=== PATIENT | female | born 1980 | race Hispanic/Latino ===

== ENCOUNTER 2017-12-15 11:04 | Observation (INO) | payer OTHER ==
[2017-12-14 11:18] VITALS: BMI 17.6
[2017-12-15 12:24] LABS: BASO % 0.2 % (0.0-2.0); EOS # 0.1 K/uL (0.0-0.7); EOS % 1.7 % (0.0-4.0); HEMOGLOBIN 13.7 g/dL (12.0-16.0); LYMPH # 2.3 K/uL (1.0-4.3); LYMPH % 39.2 % (20.0-40.0); MEAN CORPUSCULAR HEMOGLOBIN 30.9 pg (27.0-31.0); MEAN CORPUSCULAR HGB CONC 33.9 g/dL (33.0-37.0); MEAN PLATELET VOLUME 8.2 fl (7.2-11.7); MONO # 0.5 K/uL (0.0-0.8); MONO % 8.9 % (0.0-10.0); NEUT # 2.9 K/uL (1.8-7.0); NRBC % 0.2 % (0.0-0.0); RBC 4.44 Mil/uL (3.80-5.20); RED CELL DISTRIBUTION WIDTH 14.8 % (11.5-14.5); WHITE BLOOD COUNT 5.9 K/uL (4.8-10.8)
[2017-12-15] MEDS ORDERED: Bupivacaine HCl 0.5% PF (30 ml) Inj ONE (13:22)
[2017-12-15] MEDS ORDERED: Succinylcholine 200 mg/10 ml Inj IV ONE (16:22)
[2017-12-15] MEDS ORDERED: Midazolam 2 MG/2 ML VIAL ONE (16:22)
[2017-12-15] MEDS ORDERED: Rocuronium 10 mg/ml (5 ml) ONE (16:22)
[2017-12-15] MEDS ORDERED: Lidocaine 4% (Laryng-O-Jet) Kit MM ONE (16:22)
[2017-12-15] MEDS ORDERED: Neostigmine 1:1000 (1 mg/ml) Inj ONE (16:22)
[2017-12-15] MEDS ORDERED: Propofol 10 mg/ml Inj (20 ML) ONE (16:25)
[2017-12-15] MEDS ORDERED: Lactated Ringer's 1,000 ML IV ONE ×2 (16:54→18:47)
[2017-12-15] MEDS ORDERED: Normosol-R 1000 ML 1,000 ML IV ONE (17:28)
[2017-12-15] MEDS ORDERED: Dexamethasone 4 mg/1 ml ONE (17:38)
[2017-12-15] MEDS ORDERED: Silver Nitrate Topical - Stick ONE (18:15)
[2017-12-15] MEDS ORDERED: HYDROmorphone 1 mg/ml ISec ONE (18:54)
[2017-12-15] MEDS ORDERED: HYDROmorphone 0.5 mg/0.5 ml ISec IVP PRN (18:54)
[2017-12-15] MEDS ORDERED: Lactated Ringer's 1,000 ML IV SCH (19:00)
[2017-12-15] MEDS ORDERED: Oxycodone/Acetaminophen 5/325 mg Tab PO PRN (19:29)
[2017-12-16 03:39] VITALS: O2SAT 100
[2017-12-16 10:20] VITALS: BP 101/52; PULSE 70; RESP 18; TEMP 98.3
--- NOTE | 2017-12-22 10:28 | OP ---
PROCEDURE DATE: 12/15/2017 SURGEON: Errol Christian MD PROFESSOR OF BIOCHEMISTRY: Shiva Damon MD ANESTHESIOLOGIST: Elie Garcia MD ANESTHETIC: General Endo PREOPERATIVE DIAGNOSES: 1. pelvic pain. 2. Rule out endometriosis POSTOPERATIVE DIAGNOSES: 1. pelvic pain. 2. Rule out endometriosis OPERATION PERFORMED: 1. Examination under anesthesia. 2. Video_assisted hysteroscopy. 3. Hysteroscopic septoplasty. 4. Robotic da Debi laparoscopy. 5. excision of endometriosis . 6. cystoscopy COMPLICATIONS: None. SAMPLES: Sent to pathology ESTIMATED BLOOD LOSS: Minimal. FINDINGS: Genitalia: normal, external genitalia, cervix normal without lesions or polyps. Hysteroscopy showed evidence of normal cavity Cystoscopy was performed to rule out endometriosis of bladder mucosa and also interstitial cystitis, also injury. The bladder was normal with no evidence of stone, trigonitis or cystitis. Positive jet flow visualized in both ureters. Laparoscopy was normal, gallbladder was normal, liver edges appeared to be normal. Ascending colon and transverse were normal. . 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 She understood and accepted the risks involved. Appropriate literature was provided to the patient. The patient was in understanding that given her history and presurgical exam, she knows that she was a high risk and average patient. She accepted all the risks involved and all the questions had been answered to her satisfaction. DESCRIPTION OF PROCEDURE: Initiation of the case: After adequate anesthesia was obtained, the patient was placed in the dorsal lithotomy position with extreme care of placement of the patient without hyperextension or hyperflexing the hips. At this point, the patient was prepped and draped, the surgeon was gowned and gloved. A time- out was taken according to the hospital procedure and the procedure was started. At this point, we performed the cystoscopy and bilateral ureteral catheterization. At this point we performed cystoscopy: A cystoscope was inserted into the bladder, under direct visualization and the bladder was visualized. The bladder was free of lesions, tumors. There was no evidence of interstitial cystitis, and there was only a mild amount of trigonitis. At this point, both ureters were identified and appeared to be in normal anatomical position. At this point, utilizing an open-ended 5-Polish catheter, the left ureter was catheterized all the way to the distal ureter, and a 5 mL of IC-Green were injected into the distal ureter. Similarly, on the contralateral ureter, the ureter was catheterized all the way to the distal ureter, and a 5 mL of IC-Green were injected into the distal ureter. At this point, the stents were removed, and the hysteroscope was removed and a 16- Polish Parekh was placed into the bladder. At this point, we proceeded with a hysteroscopy: A speculum was placed in the vagina, and the anterior lip of the cervix was grasped. The cervix was dilated and a hysteroscope was inserted into the cavity. The cavity appeared to be of normal size with no lesions At this point, we proceeded with placement of trocars and docking of the Da Debi Xi robot The surgeons were re-gowned and re-gloved, and an open laparoscopy was performed by making an incision below the umbilicus, and the fascia was incised , and the peritoneum was entered in the blunt fashion. The cannula was inserted and the abdomen was insufflated, and under direct visualization 3 additional ports were inserted, left upper quadrant, left mid quadrant and right upper quadrant. At this point, the da Debi Xi robot was brought into the field and docked, and the instruments were inserted under direct visualization. With extreme care not to injure the bowel or any other area. As per the dictation, the upper abdomen appeared to be normal with no evidence of any lesions. The pelvis had the findings described above, which included significant adhesions, fibrosis of the posterior cul-de-sac, significant endometriosis with deep endometriosis nodules. Both ovary adherent to both the ovarian fossas and the posterior aspect of the uterus with significant inflammatory changes. At this point, we proceeded with a treatment of endometriosis and excision of endometriosis. On the left hand side, a large area of peritoneum, where containing endometriosis was excised in the ovarian fossa with the upper margin of the excision at the utero_ovarian ligament all the way down to the uterosacral ligament. Large areas of fibrosis were identified in posterior cul-de-sac and the rectovaginal space was affected with endometriosis . The rectovaginal area was then dissected and the space was opened, and we were able to dissect the rectum away from the posterior aspect of the cervix. Additional areas of endometriosis were dissected from the posterior aspect of the Uterus. At this point, we proceeded with excision of the endometriosis on the right hand side where similarly in a full excision of endometriosis was performed by performing incision from starting at the right utero_ovarian ligament all the way down to the right uterosacral ligament. There were inflammatory areas in the posterior aspect of the uterus, which were not endometriotic, but they were purely inflammatory and these were not excisable, as they were not endometriotic. Therefore, we proceeded with ablation of such area utilizing the J plasma. Once this was done, it was checked for hemostasis and appeared to be excellent. After this was done, it was checked for hemostasis and appeared to be excellent. The pelvis was irrigated. The da Debi Xi robot was removed. The abdomen desufflated. The instruments were removed. The incisions were closed in layers with 0 PDS for the fascia and 4-0 Monocryl for the skin. The patient was awakened up and taken to recovery room in excellent condition. MD IMMANUEL Lucero
== END 2017-12-16 09:45 | disposition home or self-care (01) ==
LOC: H.OPSURG 11:04 → H.PEDS 20:49 → H.OPSURG 12-16 03:32 → H.PEDS 12-16 04:07
PROVIDERS: ADMIT Obstetrics & Gynecology Reproductive Endocrinology; ATTEND Obstetrics & Gynecology Reproductive Endocrinology
DX: N80.3 Endometriosis of pelvic peritoneum (principal); N80.8 Other endometriosis; N30.30 Trigonitis without hematuria; R10.2 Pelvic and perineal pain
CPT/HCPCS: 36415; 52005; 58662; 85025; 86850; 86900; 88305; C1729; G0378; J0330; J0690; J1100; J1170; J2001; J2250; J2405; J2704; J2710; J3010; J7030; J7120; S2900